=== PATIENT | male | born 1985 | race Caucasian/White ===

== ENCOUNTER → 2016-08-11 | Outpatient (REF) ==
[~2016-08-11] MED LIST: NO HOME MEDICATIONS; NORCO 325 MG-7.1 TAB PO; PERCOCET 325 MG1 TA2 PO
== END ==
LOC: ZLAB.WCH 10:08
DX: Z01.89 Encounter for other specified special examinations (principal)

== ENCOUNTER 2017-03-09 14:22 | Emergency (ER) | payer SELFPAY ==
[~2017-03-09] VITALS: Ht 162.6 cm; Wt 61.4 kg
[2017-03-09 14:24] VITALS: BP 151/83; TEMP 97.5
[2017-03-09 15:55] VITALS: PULSE 95
== END 2017-03-09 15:59 | disposition home or self-care (01) ==
LOC: COL.ER 14:22
DX: S51.812A Laceration without foreign body of left forearm, initial encounter (principal); M19.90 Unspecified osteoarthritis, unspecified site; Z98.52 Vasectomy status; F17.210 Nicotine dependence, cigarettes, uncomplicated; W26.8XXA Contact with other sharp object(s), not elsewhere classified, initial encounter; Y92.009 Unspecified place in unspecified non-institutional (private) residence as the place of occurrence of the external cause

== ENCOUNTER 2019-07-31 18:51 | Emergency (ER) | payer OTHER ==
[~2019-07-31] VITALS: Ht 162.6 cm; Wt 63.6 kg
[2019-07-31 18:55] VITALS: BP 160/102; TEMP 97.7
[2019-07-31] MEDS ORDERED: AMOXICILLIN 8751 TAB PO (19:02)
[2019-07-31 19:12] VITALS: PULSE 112
== END 2019-07-31 19:12 | disposition home or self-care (01) ==
LOC: COL.ER 18:51
DX: K08.89 Other specified disorders of teeth and supporting structures (principal); F17.210 Nicotine dependence, cigarettes, uncomplicated